=== PATIENT | male | born 1965 | race Caucasian/White ===

== ENCOUNTER → 2016-07-13 | Outpatient (CLI) | payer MEDICARE ==
--- NOTE | 2016-07-13 09:46 | RAD ---
EXAM DESCRIPTION: Knee,Left Complete CLINICAL HISTORY: 51 years Male, PAIN IN LEFT KNEE COMPARISON: August 09, 2015 FINDINGS: 4 views of the left knee show no acute fracture or malalignment. Moderate tricompartmental degenerative changes are noted including moderate medial joint space narrowing. There is a tiny left knee joint effusion. IMPRESSION: Moderate tricompartmental degenerative changes and a tiny left knee joint effusion. Electronically signed by: Guille Peres MD 07/13/2016 9:45 AM CDT
--- NOTE | 2016-07-13 09:47 | RAD ---
EXAM DESCRIPTION: Pelvis CLINICAL HISTORY: 51 years Male, PAIN IN LEFT HIP COMPARISON: August 09, 2015 FINDINGS: Single AP view of the pelvis was obtained. The iliac crests are excluded. With this in mind, no acute fracture or malalignment is seen. The hip joint spaces are well-maintained. No focal bone lesion. IMPRESSION: Negative exam, with no apparent abnormality to left hip pain. Electronically signed by: Guille Peres MD 07/13/2016 9:46 AM CDT
== END | disposition home or self-care (01) ==
LOC: RAD 08:22
PROVIDERS: ATTEND Orthopaedic Surgery
DX: M25.562 Pain in left knee (principal); M25.552 Pain in left hip

== ENCOUNTER → 2017-03-24 | Outpatient (CLI) | payer OTHER | END | disposition home or self-care (01) | LOC: RESP 09:33 | PROVIDERS: ATTEND Orthopaedic Surgery | DX: Z01.818 Encounter for other preprocedural examination (principal) ==

== ENCOUNTER 2019-12-21 15:24 | Inpatient (IN) | payer OTHER ==
[2019-12-21] MEDS ORDERED: DEXAMETHASONE INJ 10 MG/ML VIAL IV ONE (15:33)
[2019-12-21] MEDS ORDERED: ALBUTEROL INHALER 64 PUFF/8GM INH ONE ×2 (15:34→16:35)
--- NOTE | 2019-12-21 15:51 | ED.PDOC ---
History of Present Illness - General Time Seen by Provider: 12/21/19 15:25 - History of Present Illness Initial Comments: 4 days of cough, shortness of breath. Was dx with COVID yesterday. no fever, + bodyaches. no n/v/d. Entire family tested +. no chest pain. Does not wear oxygen at home, does wear a cpap at night. Allergies/Adverse Reactions: Allergies NO KNOWN ALLERGY Allergy (Unverified 03/19/14 08:38) Home Medications: Ambulatory Orders Lisinopril 20 mg PO BEDTIME 03/19/14 Metoprolol Succinate [Toprol Xl] 100 mg PO BEDTIME 03/19/14 Omeprazole 20 mg PO BEDTIME 03/19/14 Atorvastatin Calcium [Lipitor] 10 mg PO BEDTIME 10/01/14 Verapamil HCl [Verapamil HCl ER] 240 mg PO BEDTIME 10/01/14 HYDROcodone 10MG/APAP 325MG [Assaria 10/325] 1 tab PO BID PRN 11/08/14 Apixaban [Eliquis] 5 mg PO BEDTIME 12/21/19 Ascorbic Acid [Vitamin C] 500 mg PO BEDTIME 12/21/19 Duloxetine HCl [Duloxetine Hydrocloride] 60 mg PO BEDTIME 12/21/19 Gabapentin 600 mg PO BEDTIME 12/21/19 Levocetirizine Dihydrochloride 10 mg PO BEDTIME 12/21/19 Naproxen Sodium [Naproxen Sodium ER] 500 mg PO BID 12/21/19 Review of Systems - Review of Systems Constitutional: States: chills, diaphoresis, malaise. Denies: fever EENTM: Denies: blurred vision, throat pain, throat swelling, mouth pain, mouth swelling Respiratory: States: cough, short of breath Cardiology: Denies: chest pain, edema, palpitations, syncope Gastrointestinal/Abdominal: Denies: abdominal pain, diarrhea, vomiting Genitourinary: Denies: discharge, hematuria Musculoskeletal: States: muscle pain. Denies: back pain, joint swelling, muscle stiffness Skin: Denies: change in color, rash Neurological: Denies: anxiety, depressed, headache, numbness, paresthesia, seizure, tingling, tremors, weakness Endocrine: States: flushing. Denies: increased urine, unexplained weight gain, unexplained weight loss Hematologic/Lymphatic: Denies: anemia, blood clots Past Medical History (General) - Patient Medical History Hx Cardiac Disorders: No Hx Congestive Heart Failure: No Hx Pacemaker: No Hx Hypertension: Yes Hx Diabetes: No Hx MRSA: No Hx Other PMH: Yes - CELENA Family Medical History - Family History Father Living Status: Age at (years of age): 67 Cause of : diabetic complications Hx Family Diabetes: Yes Physical Exam - Physical Exam General Appearance: Alert, Comfortable, Ill Appearing Eye Exam: bilateral normal Ears, Nose, Throat: hearing grossly normal, normal ENT inspection, normal pharynx Neck: non-tender, full range of motion, supple, normal inspection Respiratory: chest non-tender, no respiratory distress, accessory muscle use, wheezing, other - tachypnea Cardiovascular/Chest: normal peripheral pulses, regular rate, rhythm, no edema, no gallop, no JVD, no murmur Peripheral Pulses: radial,right: 2+, radial,left: 2+, dorsalis pedis,right: 2+, dorsalis pedis,left: 2+ Gastrointestinal/Abdominal: normal bowel sounds, non tender, soft, no organomegaly, no pulsatile mass Rectal Exam: deferred Back Exam: normal inspection, no CVA tenderness, no vertebral tenderness Extremity: normal range of motion, non-tender, normal inspection, no pedal edema, no calf tenderness Neurologic: elevator troubleshooter II-XII nml as tested, no motor/sensory deficits, alert, normal mood/affect Skin Exam: normal color - no rash, warm. , diaphoresis Progress - Progress Progress: 12/21/19 16:20 EKG shows HR 94, NSR, no evidence of ischemia. Will give dexamethasone 6 mg IV. Will obtain CXR, blood work. Will do a trial of albuterol inhaler for wheezing. 12/21/19 17:11 patient saturation about 90% on RA, drops to 85% with ambulation. CXR shows bilateral opacities/consolidation. will get blood cultures and start azithromycin 500 mg. The data reviewed when caring for this patient included: nurse notes, prior records, etc. The history and assessments from nurses notes were reviewed and considered, and the patient's home medication list was also reviewed and considered. My assessment and the results of testing completed here in the ED were discussed with the patient. All questions were answered, and he express understanding of my assessment and the plan. Patient to be admitted for COVID and hypoxia. 12/21/19 15:32 Isolation:Airborne ONCE 12/21/19 15:45 EKG STAT Pulse Ox, Continuous Monitoring STAT 12/21/19 16:50 BLOOD CULTURE Stat 12/21/19 17:00 Magnesium Oxide [Mag-Ox Tab] 400 mg PO DAILY 12/21/19 17:27 CTA Chest [CT] Stat 12/21/19 17:28 Azithromycin IV [Zithromax IV] 500 mg Sodium Chloride 0.9% 250Ml [NS 250ml] 250 ml IVPB ONCE 12/21/19 17:42 Hold Metformin x 48Hrs [id number] CT [Chest w/Contrast] [CT] Stat 12/22/19 15:45 Pulse Ox, Continuous Monitoring STAT 12/23/19 15:45 Pulse Ox, Continuous Monitoring STAT Laboratory Results WBC 3.3 K/mm3 (4.8-10.8) L 12/21/19 15:45 RBC 4.17 M/mm3 (4.70-6.10) L 12/21/19 15:45 Hgb 13.3 gm/dL (14.0-18.0) L 12/21/19 15:45 Hct 37.3 % (42.0-52.0) L 12/21/19 15:45 MCV 89.4 fl (80.0-94.0) 12/21/19 15:45 MCH 31.9 pg (27.0-31.0) H 12/21/19 15:45 MCHC 35.6 g/dL (33.0-37.0) 12/21/19 15:45 RDW 13.6 % (11.5-14.5) 12/21/19 15:45 Plt Count 145 K/mm3 (130-400) 12/21/19 15:45 MPV 7.8 fl (7.40-10.4) 12/21/19 15:45 Absolute Neuts (auto) 2.10 K/uL (1.8-6.8) 12/21/19 15:45 Absolute Lymphs (auto) 0.70 K/uL (1.0-3.4) L 12/21/19 15:45 Absolute Monos (auto) 0.40 K/uL (0.2-0.8) 12/21/19 15:45 Absolute Eos (auto) 0.00 K/uL (0.0-0.4) 12/21/19 15:45 Absolute Basos (auto) 0.10 K/uL (0.0-0.1) 12/21/19 15:45 Neutrophils % 64.1 % (42.0-78.0) 12/21/19 15:45 Lymphocytes % 22.3 % (20.0-50.0) 12/21/19 15:45 Monocytes % 11.7 % (2.0-9.0) H 12/21/19 15:45 Eosinophils % 0.1 % (1.0-5.0) L 12/21/19 15:45 Basophils % 1.8 % (0.0-2.0) 12/21/19 15:45 PTT (SP) 26.3 SECONDS (21.8-31.6) 12/21/19 15:45 D-Dimer, Quantitative 216.0 ng/ml (131-400) 12/21/19 15:45 pCO2 34 mmHg (35-48) L 12/21/19 17:19 pO2 74 mmHg (83-108) L 12/21/19 17:19 HCO3 23.7 mmol/L 12/21/19 17:19 ABG pH 7.458 (7.35-7.45) H 12/21/19 17:19 ABG O2 Saturation 93.9 % (95.0-99.0) L 12/21/19 17:19 ABG Base Excess 0.6 mmol/L 12/21/19 17:19 ABG Deoxyhemoglobin 6.1 % (0.0-5.0) H 12/21/19 17:19 Oxyhemoglobin % 93.5 % (94.0-98.0) L 12/21/19 17:19 Carboxyhemoglobin % -0.1 % (0.5-1.5) L 12/21/19 17:19 Methemoglobin % Sat 0.5 % (0.0-1.5) 12/21/19 17:19 Calc Total Hemoglobin 17.3 g/dL (13.5-17.5) 12/21/19 17:19 Sodium 138 mmol/L (135-145) 12/21/19 15:45 Potassium 3.5 mmol/L (3.6-5.0) L 12/21/19 15:45 Chloride 104 mmol/L (101-111) 12/21/19 15:45 Carbon Dioxide 23 mmol/L (21-31) 12/21/19 15:45 Anion Gap 14.5 (12-18) 12/21/19 15:45 BUN 11 mg/dL (7-18) 12/21/19 15:45 Creatinine 0.99 mg/dL (0.6-1.3) 12/21/19 15:45 BUN/Creatinine Ratio 11.1 (10-20) 12/21/19 15:45 Random Glucose 217 mg/dL (70-105) H 12/21/19 15:45 Serum Osmolality 281.7 mOsm/L (275-295) 12/21/19 15:45 Calcium 8.4 mg/dL (8.4-10.2) 12/21/19 15:45 Magnesium 1.5 mg/dL (1.8-2.5) L 12/21/19 15:45 Total Bilirubin 0.7 mg/dL (0.2-1.0) 12/21/19 15:45 AST 40 IU/L (10-42) 12/21/19 15:45 ALT 38 IU/L (10-60) 12/21/19 15:45 Alkaline Phosphatase 74 IU/L (42-121) 12/21/19 15:45 LD Total 244 IU/L (91-180) H 12/21/19 15:45 Creatine Kinase 168 IU/L (38-174) 12/21/19 15:45 Troponin I 0.04 ng/mL (0.01-0.05) 12/21/19 15:45 C-Reactive Protein 5.2 mg/dL (0-1.0) H 12/21/19 15:45 B-Natriuretic Peptide 54.9 pg/ml (0-100) 12/21/19 15:45 Serum Total Protein 6.5 gm/dL (6.4-8.2) 12/21/19 15:45 Albumin 3.3 g/dl (3.2-5.5) 12/21/19 15:45 Globulin 3.2 gm/dL (2.3-3.5) 12/21/19 15:45 Albumin/Globulin Ratio 1.0 (1.1-1.9) L 12/21/19 15:45 12/21/19 18:14 patient declined repeat covid testing. 12/21/19 18:46 Departure - Departure Clinical Impression: Hypoxia, Hypokalemia, Hypomagnesemia Pneumonia Qualifiers: Pneumonia type: due to unspecified organism Laterality: bilateral Lung location: unspecified part of lung Qualified Code(s): J18.9 - Pneumonia, unspecified organism ICD-10 Supporting Text: COVID Disposition: Admit Patient Condition: Fair Referrals: ARYA GUILLEN [Primary Care Provider] - 1-2 Days Home Medications: Ambulatory Orders Lisinopril 20 mg PO BEDTIME 03/19/14 Metoprolol Succinate [Toprol Xl] 100 mg PO BEDTIME 03/19/14 Omeprazole 20 mg PO BEDTIME 03/19/14 Atorvastatin Calcium [Lipitor] 10 mg PO BEDTIME 10/01/14 Verapamil HCl [Verapamil HCl ER] 240 mg PO BEDTIME 10/01/14 HYDROcodone 10MG/APAP 325MG [Assaria 10/325] 1 tab PO BID PRN 11/08/14 Apixaban [Eliquis] 5 mg PO BEDTIME 12/21/19 Ascorbic Acid [Vitamin C] 500 mg PO BEDTIME 12/21/19 Duloxetine HCl [Duloxetine Hydrocloride] 60 mg PO BEDTIME 12/21/19 Gabapentin 600 mg PO BEDTIME 12/21/19 Levocetirizine Dihydrochloride 10 mg PO BEDTIME 12/21/19 Naproxen Sodium [Naproxen Sodium ER] 500 mg PO BID 12/21/19 Decision To Admit - Decistion To Admit Decision to Admit Date: 12/21/19 Decision to Admit Time: 17:00
--- NOTE | 2019-12-21 16:22 | RAD ---
Study: Single Frontal Radiograph of the Chest. Indication:covid Comparison: None. Impression: Primarily. Aorta tortuous. Mild hazy bibasilar opacity versus consolidation. COVID-19 could give this appearance. No pleural effusion or pneumothorax. Electronically signed by: Brayan Gates MD 12/21/2019 4:20 PM CDT
[2019-12-21] MEDS ORDERED: POTASSIUM CHLORIDE ELIXIR 20 MEQ/15 ML UD PO ONE (16:36)
[2019-12-21] MEDS ORDERED: SODIUM CHLORIDE 0.9% 1000ML 1,000 ML IVS PRN (17:10)
[2019-12-21] MEDS: MAGNESIUM OXIDE 400 MG TAB PO SCH (17:25)
[2019-12-21] MEDS ORDERED: AZITHROMYCIN IV 500 MG in SODIUM CHLORIDE 0.9% 250ML 250 ML IVPB ONE (17:28)
--- NOTE | 2019-12-21 18:37 | CT ---
PROCEDURE: CT Chest w/Contrast CLINICAL HISTORY: 54 years Male Covid, short of breath TECHNIQUE: Contiguous axial images obtained through the chest after IV contrast administration. Coronal and sagittal reformatted images provided. This CT exam was performed according to our departmental dose-optimization program, which includes one or more of the following dose reduction techniques: automated exposure control, adjustment of the mA and/or kV according to patient size, and/or use of iterative reconstruction technique. COMPARISON: Radiograph obtained earlier the same day FINDINGS: There are patchy groundglass airspace infiltrates throughout the right upper and lower lobes, and scattered throughout the left mid/lower lung. No pleural effusion or pneumothorax. The central airways are patent. Shotty precarinal, subcarinal, and right hilar lymph nodes likely reactive. Borderline cardiac size without pericardial effusion. No thoracic aortic aneurysm or dissection. Steatosis of the liver with mild hepatosplenomegaly. Prior cholecystectomy. No acute osseous lesion. IMPRESSION: Patchy bilateral groundglass airspace infiltrates can be seen with COVID-19 pneumonia, though are nonspecific and can occur with a variety of infectious and noninfectious processes. [PneInd] Reference: https://pubs.rsna.org/doi/full/10.1148/ryct.5276146560 Likely reactive lymph nodes. Steatosis of the liver with mild hepatosplenomegaly. Electronically signed by: Shyanne Doan MD 12/21/2019 6:35 PM CDT
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
[2019-12-21] MEDS ORDERED: SODIUM CHLORIDE 0.9% (FLUSH) 10 ML SYG IV PRN (20:35)
[2019-12-21] MEDS ORDERED: MAGNESIUM HYDROXIDE 30 ML UD PO PRN (20:35)
[2019-12-21] MEDS ORDERED: ONDANSETRON INJ 4 MG/2 ML VIAL IV PRN (20:35)
[2019-12-21] MEDS ORDERED: ACETAMINOPHEN 325 MG TAB PO PRN (20:35)
[2019-12-21] MEDS ORDERED: ALBUTEROL INHALER 64 PUFF/8GM INH PRN (20:39)
[2019-12-21] MEDS ORDERED: NON-FORMULARY MEDICATION 1 EA MIS (Gabapentin [Gabapentin] 600 MG) PO SCH (21:00)
[2019-12-21] MEDS ORDERED: NON-FORMULARY MEDICATION 1 EA MIS (Lisinopril [Lisinopril] 20 MG) PO SCH (21:00)
[2019-12-21] MEDS ORDERED: DULOXETINE HCL 60 MG PO SCH (21:00)
[2019-12-21] MEDS ORDERED: VERAPAMIL HCL 240 MG PO SCH (21:00)
[2019-12-21] MEDS ORDERED: MAGNESIUM SULFATE PREMIX 2GM 2 GM in PREMIX BAG 1 BAG IVPB ONE (21:12)
[2019-12-21] MEDS ORDERED: DULoxetine HCL 30 MG CAP PO ONE (21:54)
[2019-12-21] MEDS ORDERED: VERAPAMIL ER 120 MG TAB PO ONE (21:54)
[2019-12-21] MEDS ORDERED: NAPROXEN SODIUM 220 MG TAB PO ONE (21:54)
[2019-12-21] MEDS ORDERED: METOPROLOL SUCCINATE XL 100 MG TAB PO ONE (21:54)
[2019-12-21] MEDS ORDERED: cefTRIAXone SODIUM 1 GM VIAL ONE (21:55)
[2019-12-21] MEDS ORDERED: LISINOPRIL 10 MG TAB ONE (21:55)
[2019-12-21] MEDS ORDERED: GABAPENTIN 300 MG CAP ONE (21:55)
[2019-12-21] MEDS ORDERED: MAGNESIUM SULFATE PREMIX 2GM 50 ML IVPB ONE (21:56)
[2019-12-21] MEDS ORDERED: SODIUM CHL 0.9% 50ML MIN-BAG+ 50 ML IVPB ONE (21:56)
[2019-12-21] MEDS: IV SET AND CAP CHANGE INJ INJ SCH (21:58)
[2019-12-21] MEDS: APIXABAN 5 MG TAB PO SCH (21:59)
[2019-12-21] MEDS: ATORVASTATIN 10 MG TAB PO SCH (21:59)
[2019-12-21] MEDS: OMEPRAZOLE CAP 20 MG CAP PO SCH (22:00)
[2019-12-21] MEDS: METOPROLOL SUCCINATE XL 50 MG TAB PO SCH (22:00)
[2019-12-21] MEDS: cefTRIAXone SODIUM 1 GM in SODIUM CHL 0.9% 50ML MIN-BAG+ 50 ML IVPB SCH (22:01)
[2019-12-21] MEDS: HYDROcodone 10MG/APAP 325MG 1 EA TAB PO PRN (22:03)
[2019-12-21] MEDS: NAPROXEN SODIUM 500 MG PO SCH (22:07)
[2019-12-22] MEDS ORDERED: PANTOPRAZOLE SODIUM IV 40 MG VIAL IV SCH (06:30)
[2019-12-22] MEDS ORDERED: NAPROXEN SODIUM 220 MG TAB PO ONE (08:07)
[2019-12-22] MEDS: BIFIDOBACTERIUM INFANTIS 4 MG CAP PO SCH (08:30)
[2019-12-22] MEDS: MAGNESIUM OXIDE 400 MG TAB PO SCH (08:30)
[2019-12-22] MEDS: DEXAMETHASONE INJ 10 MG/ML VIAL IV SCH (08:30)
[2019-12-22] MEDS: NAPROXEN SODIUM 500 MG PO SCH (08:31)
[2019-12-22] MEDS: ALBUTEROL INHALER 64 PUFF/8GM INH SCH ×4 (09:00→21:30)
[2019-12-22] MEDS: NAPROXEN SODIUM 220 MG TAB PO SCH ×2 (10:12→21:16)
[2019-12-22] MEDS ORDERED: GLUCAGON INJ 1 MG VIAL SUBCU PRN (12:42)
[2019-12-22] MEDS ORDERED: DEXTROSE 50% 25 GM/50 ML SYG IV PRN (12:42)
[2019-12-22] MEDS ORDERED: INSULIN LISPRO 100 UNITS/ML PEN SUBCU ONE (14:18)
[2019-12-22] MEDS: INSULIN LISPRO 100 UNITS/ML PEN SUBCU SCH ×2 (17:10→21:22)
[2019-12-22] MEDS: cefTRIAXone SODIUM 1 GM in SODIUM CHL 0.9% 50ML MIN-BAG+ 50 ML IVPB SCH (21:01)
[2019-12-22] MEDS: ATORVASTATIN 10 MG TAB PO SCH (21:19)
[2019-12-22] MEDS: VERAPAMIL ER 120 MG TAB PO SCH (21:19)
[2019-12-22] MEDS: APIXABAN 5 MG TAB PO SCH (21:19)
[2019-12-22] MEDS: DULoxetine HCL 30 MG CAP PO SCH (21:19)
[2019-12-22] MEDS: GABAPENTIN 300 MG CAP PO SCH (21:19)
[2019-12-22] MEDS: LISINOPRIL 10 MG TAB PO SCH (21:20)
[2019-12-22] MEDS: METOPROLOL SUCCINATE XL 50 MG TAB PO SCH (21:20)
[2019-12-22] MEDS: OMEPRAZOLE CAP 20 MG CAP PO SCH (21:20)
[2019-12-22] MEDS: CETIRIZINE HCL 10 MG TAB PO SCH (21:21)
[2019-12-22] MEDS ORDERED: ASCORBIC ACID 500 MG TAB ONE (21:21)
[2019-12-22] MEDS: ASCORBIC ACID 500 MG TAB PO SCH (21:22)
--- NOTE | 2019-12-22 22:11 | PN ---
SUPERVISING PHYSICIAN: Ankit Keller M.D. DATE: 12/22/19 SUBJECTIVE: The patient is resting in bed. He is a little short of breath when he gets up and moves around. Otherwise he does not really have any other complaints. He just doesn't feel well. OBJECTIVE: VITAL SIGNS: Temperature 97.8, pulse 52, blood pressure 124/81, respirations 22, satting 93% on 4 liters nasal cannula. GENERAL: The patient is resting comfortably. Does not appear to be in any distress. He is alert. CHEST: Lung sounds remain diminished more so towards the bases with just faint rhonchi heard bilaterally, more prominent on the lateral aspects towards the bases. HEART: Regular rate and rhythm. ABDOMEN: Soft but obese, non-tender. Positive bowel sounds. EXTREMITIES: Without any edema. NEUROLOGIC: He is alert and oriented times three. LABORATORY: laboratory this morning showed a white count of 3,700, hemoglobin stable at 13.2 and 37.5 respectively with platelet count 153,000. Differential shows to be without a left shift. Coagulation studies showed continued normal D-dimer at 154, fibrinogen is 459 with admission of 425. PTT remains within normal limits. Chemistries showed normal electrolytes. His blood sugars are elevated and ranging between 217 and 340. Hemoglobin A1c showed to be elevated at 7, calcium 8.6, magnesium 2.1 after replacement on admission. Ferritin is normal at 242. Liver functions are all within normal limits with LDH showing some elevation but decreasing at 235 compared to admission. MICROBIOLOGY: Blood cultures remain negative at 24 hours. We did get a scan report from Dr. Savage's office showing testing for COVID was positive. RADIOLOGY: No additional radiographic studies this morning. ASSESSMENT: 1. COVID pneumonia with hypoxia. 2. COVID-19 infection as demonstrated by positive testing. 3. Electrolytes imbalance with hypokalemia and hypomagnesemia now resolved with replacement. 4. Hypertension, stable. 5. Diabetes mellitus type 2 undiagnosed with a hemoglobin A1c of 7 on admission with the patient not previously treated either with medications or diet. 6. Obesity with body mass index of 51. PLAN: Will continue current treatment for COVID pneumonia per protocol with Decadron, Rocephin and azithromycin, breathing treatments and bronchial hygiene. I have started him on sliding scale insulin given his hemoglobin A1c and new diagnosis of diabetes. He is also on an ADA 1800 calorie diet. Will continue to monitor his labs. I would anticipate that we could probably discharge him if he continues to show stable labs and is not requiring additional oxygenation with desaturations over the next 48 hours, at least by either Wednesday or Wednesday. Until we can transition him to outpatient management will continue to monitor and treat as needed. #[id number] [facility]
[2019-12-23] MEDS: INSULIN LISPRO 100 UNITS/ML PEN SUBCU SCH ×4 (08:16→21:03)
[2019-12-23] MEDS: ALBUTEROL INHALER 64 PUFF/8GM INH SCH ×4 (08:30→19:41)
[2019-12-23] MEDS: DEXAMETHASONE INJ 10 MG/ML VIAL IV SCH (08:56)
[2019-12-23] MEDS: NAPROXEN SODIUM 220 MG TAB PO SCH ×2 (08:59→20:48)
[2019-12-23] MEDS: BIFIDOBACTERIUM INFANTIS 4 MG CAP PO SCH (08:59)
[2019-12-23] MEDS: MAGNESIUM OXIDE 400 MG TAB PO SCH (09:07)
--- NOTE | 2019-12-23 16:15 | RAD ---
EXAM DESCRIPTION: Chest,1 View CLINICAL HISTORY: 54 years Male COVID PNA COMPARISON: 12/21/2019 FINDINGS: Heart size and mediastinal contour appear stable. Patchy infiltrates are present predominantly in the periphery of the right chest. Findings are consistent with known diagnosis of viral pneumonia. This appears worse than on the previous exam. IMPRESSION: Worsening infiltrates when compared to the previous examination consistent with known viral pneumonia Electronically signed by: Sara Frank MD 12/23/2019 4:13 PM CDT
[2019-12-23] MEDS: metFORMIN HCL 500 MG TAB PO SCH (17:01)
--- NOTE | 2019-12-23 19:29 | PN ---
SUPERVISING PHYSICIAN: Ankit Keller M.D. DATE: 12/23/19 SUBJECTIVE: The patient seems to be doing a little bit better today. He is not quite as short of breath. Says he is not quite as tired as he has been. OBJECTIVE: VITAL SIGNS: Temperature 99.2, pulse 80, blood pressure 132/84, respirations 20, satting 98% on 3 liters nasal cannula. GENERAL: The patient is resting comfortably. Does not look to be in any distress. CHEST: Lung sounds are just a little diminished towards the bases but seems to be improving in regards to aeration bilaterally. HEART: Regular rate and rhythm. ABDOMEN: Obese, soft with positive bowel sounds. EXTREMITIES: Without any edema. NEUROLOGIC: He is alert and oriented times three. SKIN: Warm, pink and dry. LABORATORY: CBC shows a white count today of 15,700 with a left shift noted. Coagulation studies show an improving fibrinogen at 436. PTT is still within normal limits, D-dimer is less than 131. Chemistries show sodium 134, potassium 4.3. Liver functions all within normal limits. LDH is 271. C reactive protein is 3 which is down from admission of 5.2. Troponin 0.02. Blood sugars range between 260 and 299. MICROBIOLOGY: Blood cultures remain negative. RADIOLOGY: Repeat chest x-ray today of a single view chest shows worsening infiltrates when compared to previous exam consistent with known viral pneumonia. ASSESSMENT: 1. COVID pneumonia with hypoxia, improving but showing an increase of leukocytosis likely driven by steroids with the patient still requiring oxygen. 2. COVID-19 infection as demonstrated by positive testing. 3. Electrolytes imbalance with hypokalemia and hypomagnesemia now resolved with replacement. 4. Hypertension, stable. 5. Diabetes mellitus type 2, previously undiagnosed with a hemoglobin A1c of 7 with the patient started on Metformin. PLAN: Will continue with current plan of care with antibiotics, Decadron and breathing treatments. I have started him on Metformin 500 mg b.i.d. for his blood sugars which he will go home on. His labs are showing to be fairly stable. Will follow those for another 24 hours. Given that he had a slight increase in his white count, we are starting him on Metformin just to ensure that his blood sugars are going to stay stable with the intention of discharging tomorrow. I have ordered a ambulation study to see if he will need to go home on oxygen, which we will work with insurance to get that arranged if that is the case, and hopefully we will be able to transition him home tomorrow. Until we can transition back to outpatient management will continue to monitor and treat as needed. #[id number] [facility]
[2019-12-23] MEDS: APIXABAN 5 MG TAB PO SCH (20:48)
[2019-12-23] MEDS: METOPROLOL SUCCINATE XL 50 MG TAB PO SCH (20:49)
[2019-12-23] MEDS: VERAPAMIL ER 120 MG TAB PO SCH (20:49)
[2019-12-23] MEDS: ATORVASTATIN 10 MG TAB PO SCH (20:49)
[2019-12-23] MEDS: OMEPRAZOLE CAP 20 MG CAP PO SCH (20:49)
[2019-12-23] MEDS: CETIRIZINE HCL 10 MG TAB PO SCH (20:49)
[2019-12-23] MEDS: DULoxetine HCL 30 MG CAP PO SCH (20:50)
[2019-12-23] MEDS: ASCORBIC ACID 500 MG TAB PO SCH (20:50)
[2019-12-23] MEDS: LISINOPRIL 10 MG TAB PO SCH (20:50)
[2019-12-23] MEDS: GABAPENTIN 300 MG CAP PO SCH (20:50)
[2019-12-23] MEDS: HYDROcodone 10MG/APAP 325MG 1 EA TAB PO PRN (20:55)
[2019-12-23] MEDS: cefTRIAXone SODIUM 1 GM in SODIUM CHL 0.9% 50ML MIN-BAG+ 50 ML IVPB SCH (21:10)
[2019-12-24] MEDS: INSULIN LISPRO 100 UNITS/ML PEN SUBCU SCH ×6 (08:25→21:24)
[2019-12-24] MEDS: NAPROXEN SODIUM 220 MG TAB PO SCH ×2 (08:27→21:13)
[2019-12-24] MEDS: MAGNESIUM OXIDE 400 MG TAB PO SCH (08:27)
[2019-12-24] MEDS: BIFIDOBACTERIUM INFANTIS 4 MG CAP PO SCH (08:27)
[2019-12-24] MEDS: DEXAMETHASONE INJ 10 MG/ML VIAL IV SCH (08:27)
[2019-12-24] MEDS: metFORMIN HCL 500 MG TAB PO SCH ×2 (08:27→17:27)
[2019-12-24] MEDS: ALBUTEROL INHALER 64 PUFF/8GM INH SCH ×4 (08:30→19:52)
[2019-12-24] MEDS ORDERED: INSULIN DETEMIR 100 UNITS/ML PEN SUBCU ONE (09:58)
[2019-12-24] MEDS: guaiFENesin ER TAB 600 MG TAB PO SCH ×2 (11:49→21:11)
[2019-12-24] MEDS ORDERED: SODIUM CHLORIDE 0.65% NASAL SPRAY 45 ML BTTL BNAS PRN (12:22)
--- NOTE | 2019-12-24 16:09 | PN ---
SUPERVISING PHYSICIAN: Ankit Keller M.D. DATE: 12/24/19 SUBJECTIVE: The patient today notes that he just doesn't feel well. He says he is not really having significant shortness of breath, but he is just tired and weak. He does wear a CPAP at night for obstructive sleep apnea which he has been utilizing, and he has had a slight increase of need for oxygen but is not showing to be in any distress. Denies any actual respiratory distress throughout the night or increased work of breathing. OBJECTIVE: VITAL SIGNS: Temperature 98, pulse 56, blood pressure 132/77, respirations 18, satting 92% on 3.5 liters nasal cannula. GENERAL: The patient does look tired but he does not look to be in any distress. He is alert. CHEST: Lung sounds are a little bit better in regards to aeration, just diminished towards the bases. I do not hear any rhonchi or wheezing today. HEART: Regular rate and rhythm. ABDOMEN: Soft, non-tender. Positive bowel sounds. EXTREMITIES: Without any edema. NEUROLOGIC: He is alert and oriented times three. SKIN: Warm, pink and dry. LABORATORY: White count is down to 13,900, hemoglobin 13.2, hematocrit 38.5, platelet count 195,000. Differential does show a left shift. Coagulation studies were not repeated today. Chemistries showing stable electrolytes. Anion gap is a little elevated today compared to previous at 18.5. CO2 is normal at 21, creatinine at 0.9. Blood sugars have been ranging between 246 up to 334. Magnesium is a little low at 1.7. MICROBIOLOGY: Blood cultures remain negative at 48 hours. RADIOLOGY: No additional radiographic studies today. ASSESSMENT: 1. COVID pneumonia with hypoxia and continued need for supplemental oxygen. 2. COVID-19 infection demonstrated by positive testing prior to admission. 3. Hypertension, stable. 4. Diabetes mellitus type 2, new diagnosis with hemoglobin A1c of 7 on admission with the patient just started on Metformin showing elevated blood sugars secondary to Decadron. PLAN: Will continue with current plan of care with Decadron antibiotics to include Rocephin and azithromycin. He is utilizing his CPAP at night. He does remain on DVT prophylaxis with Eliquis. I was hoping to discharge him home today, however he had a slight increase in need for oxygen last night, so I think he is at least warranted another 24 hours to make sure that he is now showing an acute decline. Will repeat labs and x-rays as ordered in the morning. If he does well overnight clinically and stays stable, certainly we could discharge home. He has insurance through [employer], I believe, and we need to make arrangements for oxygen if he does require oxygen at discharge. Until we can transition home will continue to monitor and treat as needed. #[id number] [facility]
[2019-12-24] MEDS ORDERED: metFORMIN HCL 500 MG TAB ONE (17:27)
[2019-12-24] MEDS: ASCORBIC ACID 500 MG TAB PO SCH (21:12)
[2019-12-24] MEDS: METOPROLOL SUCCINATE XL 50 MG TAB PO SCH (21:12)
[2019-12-24] MEDS: LISINOPRIL 10 MG TAB PO SCH (21:12)
[2019-12-24] MEDS: VERAPAMIL ER 120 MG TAB PO SCH (21:12)
[2019-12-24] MEDS: DULoxetine HCL 30 MG CAP PO SCH (21:12)
[2019-12-24] MEDS: ATORVASTATIN 10 MG TAB PO SCH (21:12)
[2019-12-24] MEDS: APIXABAN 5 MG TAB PO SCH (21:13)
[2019-12-24] MEDS: GABAPENTIN 300 MG CAP PO SCH (21:13)
[2019-12-24] MEDS: OMEPRAZOLE CAP 20 MG CAP PO SCH (21:14)
[2019-12-24] MEDS: cefTRIAXone SODIUM 1 GM in SODIUM CHL 0.9% 50ML MIN-BAG+ 50 ML IVPB SCH (21:14)
[2019-12-24] MEDS: CETIRIZINE HCL 10 MG TAB PO SCH (21:15)
[2019-12-24] MEDS: IV SET AND CAP CHANGE INJ INJ SCH (21:15)
[2019-12-24] MEDS: INSULIN DETEMIR 100 UNITS/ML PEN SUBCU SCH (21:26)
[2019-12-25] MEDS ORDERED: metFORMIN HCL 500 MG TAB ONE (07:24)
[2019-12-25] MEDS ORDERED: guaiFENesin ER TAB 600 MG TAB ONE (07:24)
--- NOTE | 2019-12-25 07:30 | RAD ---
EXAM DESCRIPTION: X-ray single view chest. CLINICAL HISTORY: 54 years Male, covid 19 pneumonia COMPARISON: Chest x-ray performed on 12/23/2019 and chest x-ray and chest CT performed on 12/21/2019 TECHNIQUE: Single portable x-ray view of the chest performed on 12/25/2019 at 7:02 AM FINDINGS: The lungs are well expanded. There appear to be increasing moderate interstitial and alveolar opacities bilaterally likely due to multifocal pneumonia. The lateral costophrenic sulci are grossly clear. There is no evidence of a pneumothorax. The cardiac silhouette is stable and appears mildly prominent. The cardiac silhouette may be accentuated by the portable technique. The mediastinal contours are normal. No acute osseous abnormality is identified. No focal soft tissue abnormalities are seen. Lines and tubes: None. IMPRESSION: Increasing moderate interstitial and alveolar opacities bilaterally likely due to multifocal pneumonia. Electronically signed by: Vidya Acharya DO 12/25/2019 7:29 AM CDT
[2019-12-25 07:57] VITALS: BP 120/73; TEMP 97.5; O2SAT 90
[2019-12-25] MEDS: INSULIN LISPRO 100 UNITS/ML PEN SUBCU SCH ×2 (07:57→07:58)
[2019-12-25] MEDS: INSULIN DETEMIR 100 UNITS/ML PEN SUBCU SCH (07:58)
[2019-12-25] MEDS: NAPROXEN SODIUM 220 MG TAB PO SCH (08:49)
[2019-12-25] MEDS: DEXAMETHASONE INJ 10 MG/ML VIAL IV SCH (08:49)
[2019-12-25] MEDS: BIFIDOBACTERIUM INFANTIS 4 MG CAP PO SCH (08:49)
[2019-12-25] MEDS: metFORMIN HCL 500 MG TAB PO SCH (08:49)
[2019-12-25] MEDS: guaiFENesin ER TAB 600 MG TAB PO SCH (08:49)
[2019-12-25] MEDS: MAGNESIUM OXIDE 400 MG TAB PO SCH (08:49)
--- NOTE | 2019-12-25 11:53 | DS ---
DISCHARGE SUMMARY/TRANSFER SUMMARY ADMISSION DIAGNOSIS: 1. COVID-19 pneumonia with hypoxia. 2. Electrolyte imbalance. 3. Hypertension. 4. Morbid obesity. DISCHARGE DIAGNOSIS: 1. Hypoxemic respiratory failure secondary to COVID-19 pneumonia. 2. Morbid obesity. 3. Obstructive sleep apnea. 4. Hypertension. 5. Newly diagnosed diabetes mellitus as evidenced by hemoglobin A1c of 7.0. HOSPITAL COURSE: This is a 54-year-old male patient who went to the Emergency Room with shortness of breath. The patient was seen in his primary care provider's office and was actually tested for COVID-19 on 12/19/19 and was found to be positive on 12/20/19. He states his entire family tested positive for COVID-19. In the ER, he was found to have O2 saturation around 88%. He was placed on O2 and his oxygenation improved. ABG also confirmed hypoxemia. He was placed in the hospital and put on azithromycin, Rocephin and Decadron. He was also placed on anticoagulation. Throughout the admission, the patient required a little bit more oxygen each day. He uses home CPAP and they were bleeding 5 liters of oxygen and his O2 saturations were marginal. His oxygen requirements have gotten as high as 10 liters. In fact, at this point, he is 10 liters, saturation 88% to 90%. I discussed with the patient how he is feeling at this time and he states he is starting to be a little bit tired. At time of examination, he is alert and oriented and not in severe distress, but he is a little bit tachypneic. I discussed with him transfer to higher level of care so that he can get convalescent plasma and potentially Remdesivir and he confirmed that he would want to do this. Therefore, I initiated transfer to [facility]. Dr. Hernandez accepted transfer of the patient. Further care will be determined by [facility]. #[id number] [facility]
== END 2019-12-25 10:10 | disposition short-term general hospital (02) | DRG 177 ==
LOC: ER 15:24 → MS 18:43 → OBSVTOIN 18:43
PROVIDERS: ADMIT Nurse Practitioner Family; ATTEND Nurse Practitioner
PROC: BW241ZZ Computerized Tomography (CT Scan) of Chest and Abdomen using Low Osmolar Contrast (ICD-10-PCS; principal; 2019-12-21)
DX: U07.1 COVID-19 (principal); J12.89 Other viral pneumonia; Z68.43 Body mass index [BMI] 50.0-59.9, adult; R09.02 Hypoxemia; E87.6 Hypokalemia; E83.42 Hypomagnesemia; G47.33 Obstructive sleep apnea (adult) (pediatric); E11.65 Type 2 diabetes mellitus with hyperglycemia; T38.0X5A Adverse effect of glucocorticoids and synthetic analogues, initial encounter; I10 Essential (primary) hypertension; F17.290 Nicotine dependence, other tobacco product, uncomplicated; E66.9 Obesity, unspecified; Y92.230 Patient room in hospital as the place of occurrence of the external cause; Z96.653 Presence of artificial knee joint, bilateral; Z79.1 Long term (current) use of non-steroidal anti-inflammatories (NSAID); Z79.01 Long term (current) use of anticoagulants; Z79.891 Long term (current) use of opiate analgesic; Z79.899 Other long term (current) drug therapy